=== PATIENT | male | born 1970 | race Two or more races ===

== ENCOUNTER 2017-03-27 21:03 | Emergency (ER) | payer OTHER, SELFPAY ==
[~2017-03-27] VITALS: Ht 180.3 cm; Wt 72.9 kg
[2017-03-27 21:05] VITALS: BP 102/70
[2017-03-27] MEDS ORDERED: KETOROLAC 30 MG/1 ML ONE (22:58)
[2017-03-27] MEDS ORDERED: OXYcodone/APAP 5/325MG TABLET ONE (22:58)
[2017-03-27] MEDS ORDERED: KETOROLAC 30 MG/1 ML IM ONE (23:00)
[2017-03-27] MEDS ORDERED: OXYcodone/APAP 5/325MG TABLET PO ONE (23:00)
[2017-03-27 23:09] LABS: HEMATOCRIT 40.5 % (39.2-51.8); HEMOGLOBIN 13.4 g/dL (13.7-18.0); WHITE BLOOD COUNT 10.4 x10^3/uL (3.4-10)
[2017-03-27 23:19] LABS: ASPARTATE AMINO TRANSFERASE 24 U/L (15-37); BLOOD UREA NITROGEN 26 mg/dL (7-18)
== END 2017-03-27 23:39 | disposition home or self-care (01) ==
LOC: ED 21:36
DX: M79.642 Pain in left hand (principal); M79.641 Pain in right hand
CPT/HCPCS: 36415; 73130; 80053; 84550; 85025; 96372; 99285; J1885

== ENCOUNTER 2017-06-27 16:27 | Emergency (ER) | payer OTHER ==
[~2017-06-27] VITALS: Ht 177.8 cm; Wt 75.3 kg
[2017-06-27] MEDS ORDERED: KETOROLAC 30 MG/1 ML IM ONE (17:30)
[2017-06-27] MEDS ORDERED: KETOROLAC 30 MG/1 ML ONE (18:17)
[2017-06-27 19:15] LABS: RAPID INFLUENZA A Negative (Negative); RAPID INFLUENZA B Negative (Negative)
[2017-06-27 19:19] VITALS: BP 119/78
== END 2017-06-27 19:38 | disposition home or self-care (01) ==
LOC: ED 19:35
DX: J02.8 Acute pharyngitis due to other specified organisms (principal); M79.1 Myalgia; M06.9 Rheumatoid arthritis, unspecified; Z88.5 Allergy status to narcotic agent
CPT/HCPCS: 71020; 87400; 93005; 96372; 99285; J1885